=== PATIENT | female | born 1995 | race Hispanic/Latino ===

== ENCOUNTER → 2023-12-06 14:31 | Outpatient (REF) | payer OTHER, SELFPAY ==
[2023-12-06 17:46] LABS: Hematocrit 36.1 % (37.0-47.0); Mean Corp Hgb Conc. 33.2 g/dL (33.0-37.0); Mean Corpuscular Hgb 26.2 pg (27.0-31.0); Mean Corpuscular Volume 78.8 fL (81.0-99.0); Mean Platelet Volume 13.1 fL (7.4-10.4); Platelet Count 228 10^3/uL (130-400); Red Blood Cell Count 4.58 10^6/uL (4.20-5.40); Red Cell Dist. Width 13.1 % (11.5-14.5); White Blood Cell Count 6.7 10^3/uL (4.8-10.8)
[2023-12-06 18:16] LABS: ALT (SGPT) 45 U/L (0-35); AST (SGOT) 43 U/L (14-36); Albumin 4.6 g/dl (3.5-5.0); Alkaline Phosphatase 91 U/L (38-126); Blood Urea Nitrogen 12 mg/dl (7-17); Calcium 9.7 mg/dl (8.4-10.2); Carbon Dioxide 24 mmol/L (22-30); Chloride 104 mmol/L (98-107); Glucose 86 mg/dl (70-99); Potassium 4.1 mmol/L (3.5-5.1); Sodium 138 mmol/L (135-145); Total Bilirubin 0.4 mg/dl (0.2-1.3); Total Protein 7.9 g/dl (6.3-8.2); eGFR > 60.00
[2023-12-06 18:43] LABS: TSH Reflex To Free T4 1.76 uIU/ml (0.47-4.68)
== END ==
LOC: REG 14:31
PROVIDERS: ATTENDING PHYSICIAN Nurse Practitioner Adult Health
DX: Z86.2 Personal history of diseases of the blood and blood-forming organs and certain disorders involving the immune mechanism (principal)
CPT/HCPCS: 36415; 80053; 84443; 85027

== ENCOUNTER → 2024-03-27 11:27 | Outpatient (REF) | payer OTHER, SELFPAY ==
[2024-03-27 12:19] LABS: Hematocrit 37.5 % (37.0-47.0); Hemoglobin 13.3 g/dL (12.0-16.0); Mean Corp Hgb Conc. 35.5 g/dL (33.0-37.0); Mean Corpuscular Hgb 27.4 pg (27.0-31.0); Mean Corpuscular Volume 77.3 fL (81.0-99.0); Mean Platelet Volume 12.6 fL (7.4-10.4); Platelet Count 215 10^3/uL (130-400); Red Blood Cell Count 4.85 10^6/uL (4.20-5.40)
[2024-03-27 12:37] LABS: ALT (SGPT) 66 U/L (0-35); AST (SGOT) 47 U/L (14-36); Albumin 4.6 g/dl (3.5-5.0); Alkaline Phosphatase 83 U/L (38-126); Blood Urea Nitrogen 10 mg/dl (7-17); Calcium 9.8 mg/dl (8.4-10.2); Carbon Dioxide 28 mmol/L (22-30); Chloride 104 mmol/L (98-107); Glucose 94 mg/dl (70-99); Potassium 4.3 mmol/L (3.5-5.1); Sodium 137 mmol/L (135-145); Total Bilirubin 0.6 mg/dl (0.2-1.3); Total Protein 7.9 g/dl (6.3-8.2); eGFR > 60.00
== END ==
LOC: REG 11:27
PROVIDERS: ATTENDING PHYSICIAN Nurse Practitioner Adult Health
DX: R74.8 Abnormal levels of other serum enzymes (principal); Z86.2 Personal history of diseases of the blood and blood-forming organs and certain disorders involving the immune mechanism
CPT/HCPCS: 36415; 80053; 85027

== ENCOUNTER → 2024-07-23 16:35 | Outpatient (REF) | payer OTHER, SELFPAY ==
[2024-07-23 17:29] LABS: ALT (SGPT) 32 U/L (0-35); AST (SGOT) 32 U/L (14-36); Albumin 4.5 g/dl (3.5-5.0); Alkaline Phosphatase 62 U/L (38-126); Direct Bilirubin 0.1 mg/dl (0.0-0.4); Total Bilirubin 0.2 mg/dl (0.2-1.3); Total Protein 7.8 g/dl (6.3-8.2)
== END ==
LOC: CLINIC 16:35
PROVIDERS: ATTENDING PHYSICIAN Nurse Practitioner Adult Health
DX: R74.8 Abnormal levels of other serum enzymes (principal)
CPT/HCPCS: 36415; 80076

== ENCOUNTER → 2025-02-26 11:36 | Outpatient (REF) | payer OTHER, SELFPAY ==
[2025-02-26 13:39] LABS: Beta HCG Quantitative 14126.00 mIU/ml
== END ==
LOC: CLINIC 11:36
PROVIDERS: ATTENDING PHYSICIAN Nurse Practitioner Adult Health
DX: N92.6 Irregular menstruation, unspecified (principal)
CPT/HCPCS: 36415; 84702